=== PATIENT | male | born 1990 | race Hispanic/Latino ===

== ENCOUNTER 2021-08-22 20:24 | Emergency (ER) | payer BC ==
[~2021-08-22] VITALS: Ht 185.4 cm; Wt 140.6 kg
[2021-08-22 20:37] VITALS: BP 179/98
[2021-08-22] MEDS ORDERED: DIAZEPAM 5 MG/ML 2 ML SYG IM ONE (21:00)
[2021-08-22] MEDS ORDERED: KETOROLAC 30MG VIAL (30MG/ML) IV ONE (21:00)
[2021-08-22] MEDS ORDERED: HYDROCODONE/ACETAMINOPHEN 10/325 MG TAB PO ONE (21:00)
[2021-08-22] MEDS ORDERED: KETO10 PO (21:43)
[2021-08-22] MEDS ORDERED: CYCL10TA16 PO (21:43)
[2021-08-22] MEDS ORDERED: FENTANYL 50 MCG/HR PATCH TD SCH (22:00)
== END 2021-08-22 21:59 | disposition home or self-care (01) ==
LOC: EDH 20:24
DX: M43.6 Torticollis (principal); I10 Essential (primary) hypertension; E66.9 Obesity, unspecified; Z79.1 Long term (current) use of non-steroidal anti-inflammatories (NSAID); Z68.41 Body mass index [BMI] 40.0-44.9, adult
CPT/HCPCS: 96372; 96374; 99284; J1885; J3360